=== PATIENT | male | born 1945 | race Caucasian/White ===

== ENCOUNTER 2024-09-19 00:22 | Outpatient (CLI) | payer MEDICARE, SELFPAY ==
--- NOTE | 2024-09-19 10:30 | DI.MRI_ITS ---
Exam(s) MR LUMBAR SPINE WO EXAM: MR LUMBAR SPINE WO CLINICAL HISTORY: Low back pain radiating to the bilateral legs,sciatica,m54.30. TECHNIQUE: Multiplanar multisequence MRI of the Lumbar spine was performed. COMPARISON: No prior plain film exams were available for comparison FINDINGS: Five lumbar vertebrae are presumed. Conus medullaris is at normal level. There is no evidence of conus mass nor subjacent clumping of in trathecal nerve roots to suggest arachnoiditis. The distal thecal sac appears unremarkable.There is no evidence of Tarlov intrasacral cysts nor other significant findings within the sacral canal Bones:There are no fractures nor ominous osseous lesions in the lumbar vertebral bodies and visualize d sacrum. There is a benign intraosseous hemangioma the left side of L4 vertebral body. Another is seen posteriorly in the T12 vertebral body. With respect to the individual disc space levels... T12-L1: Unremarkable L1-2: This level exhibits advanced disc space narrowing and anterior osteophytes. Posteriorly there is symmetrical annular bulging without a dominant disc herniation. Central canal dimensions are lowe r normal. There is no significant foraminal stenosis at this level. L2-3: This level exhibits moderate disc height loss. Lateral right-sided osteophytes noted. Posteri maria g there is relatively symmetrical annular bulging. Mild-moderate central canal stenosis. The frederick ular bulging does not extend appreciably into the exiting neural foramina and of the there is no sign ificant foraminal stenosis on either side at this level. There is mild-moderate facet arthropathy. L3-4: There is advanced disc space narrowing at this level which is slightly more so left than right sided and there are Modic type 1 sub endplate marrow edema changes on the left side at this level. T here is broad relatively symmetrical annular bulging at this level. There is severe central spinal c anal stenosis at this level due to the broad annular bulging, short AP dimensions of the pedicles, bi lateral ligamentum flavum hypertrophy and mild degenerative changes in the facet joints. There is mil d bilateral foraminal stenosis. L4-5: At this level there is moderate disc space narrowing. Schmorl's node invagination noted in the right of center inferior endplate of L4 with surrounding edema in the L4 vertebral body but no heigh t loss of the L4 vertebral body. Posteriorly there is also severe central spinal canal stenosis at t his level due to broad annular bulging, short AP dimensions the pedicles, bilateral ligamentum flavum hypertrophy, and facet arthropathy. There is severe foraminal stenosis on the left side. There is moderate foraminal stenosis on the right side. L5-S1: This level exhibits relatively preserved disc height. Posteriorly there appear to be bilatera l pars defects at L5 level with mild anterolisthesis of L5 upon S1. There is no disc herniation at t his level. Central canal dimensions are within normal limits. There is, however, an element of bila teral foraminal stenosis with impingement of the exiting bilateral nerve roots at this level between the overlying L5 pedicles and the subjacent mild bulging annulus. Soft tissues: There is an abnormal nodule incidentally noted in the right adrenal gland which measur es 2.6 cm AP x 2.4 cm wide. No mass seen in the left adrenal gland. IMPRESSION: 1. There is severe central spinal canal stenosis at L3-4 and L4-5 levels due to broad annular bulging , short AP dimensions the pedicles, facet arthropathy at these levels and bilateral ligamentum flavum hypertrophy. There is mild-moderate central canal stenosis at L2-3 level. 2. There is mild anterolisthesis of L5 upon S1 due to bilateral L5 pars defects. There is no central canal stenosis at this level but there is bilateral foraminal stenosis causing impingement of the bi lateral exiting nerve roots at this level. 3. There is severe left-sided foraminal stenosis at L4-5 level and moderate foraminal stenosis on the right side this level. Incidentally noted is a 2.6 x 2.4 cm right adrenal mass-nodule. If clinically indicated this can be further studied with in and out of phase chemical shift MRI imaging for added specificity. DATA REPOSITORY:
== END 2024-09-19 00:42 ==
LOC: DI 00:22
PROVIDERS: PCP Family Medicine; Visit Provider Preventive Medicine Occupational Medicine
DX: M48.062 Spinal stenosis, lumbar region with neurogenic claudication (principal)
CPT/HCPCS: 72148

== ENCOUNTER 2024-10-02 07:46 | Outpatient (CLI) | payer MEDICARE, SELFPAY ==
[2024-10-02 08:30] VITALS: BP 156/67; PULSE 64; RESP 20; TEMP 36.6; O2SAT 98
[2024-10-02 09:22] VITALS: PULSE 86; PULSE 93; RESP 17; O2SAT 97
[2024-10-02 09:23] VITALS: BP 186/80; PULSE 77; PULSE 78; RESP 19; O2SAT 96
[2024-10-02 09:30] VITALS: PULSE 75; PULSE 77; RESP 18; O2SAT 96
[2024-10-02 09:31] VITALS: BP 167/83; PULSE 66; RESP 17; O2SAT 97
[2024-10-02] MEDS: Epidural Tray 1 EACH MC (09:36)
[2024-10-02] MEDS: methylPREDNISolone ACETATE 80 MG/ML VIAL IJ (09:36)
--- NOTE | 2024-10-02 09:36 | DI.RAD_ITS ---
Exam(s) XR PAIN CLINIC LUMBAR SP 2V EXAM: XR PAIN CLINIC LUMBAR SP 2V CLINICAL HISTORY: DX: Lumbar Radiculopathy. TECHNIQUE: Fluoroscopy was provided for the referring physician for guidance with performing pain cl inic injection procedure. COMPARISON: No exams were available for comparison FINDINGS: Please see procedure note for details. Fluoro time: 22.3 seconds RADIATION DOSE DELIVERED: Ka,r=9.32 mGy
[2024-10-02] MEDS: Omnipaque 240 MG/ML 50 ML BTL IJ (09:37)
--- NOTE | 2024-10-02 09:39 | PDOC.PAIN ---
Date of service: 10/02/24 Time of Service: 09:39 Pain Managment Procedure Note Procedure Note Procedure Note: PROCEDURE NOTE LUMBAR EPIDURAL STEROID INJECTION Date of Service: October 02, 2024 Patient:Ac Duran? Provider: Wolf Fenton DO, MPH Ac Chapin has been referred to the [facility] for a lumbar epidural steroid injection. Pre-operative diagnosis: Lumbosacral Radiculopathy ICD-10 M54.16 Post-operative diagnosis: Same Pre-Procedure Pain: VAS= 7 /10 Comments: I previously evaluated him in the office. No change in symptoms since that visit. Ac was interviewed and the medical record was reviewed.? There were no medical, pharmacologic, radiographic or other structural contraindications to attempting fluoroscopically guided Lumbar epidural steroid injection.? Risks, potential side effects, indications, and potential benefits of the procedure were reviewed with Ac.? Questions and concerns were addressed.? After it was clear that Ac was fully informed about the procedure, the printed consent form was signed by the patient and myself.? Ac was placed in the prone position on the fluoroscopy table and automated blood pressure cuff and pulse oximeter applied. The skin entry point for entering/approaching the epidural space for the lumbar epidural steroid injection was marked. Following thorough chlorhexadine preparation of the skin and draping and 1% lidocaine infiltration of the skin entry point and subcutaneous tissues, an 18 gauge Touhy needle was placed and advanced under fluoroscopic guidance and with loss of resistance technique into the L5-S1 epidural space. Needle tip placement and depth were aided and confirmed by fluoroscopy. There was no paresthesia or return of blood or CSF through the needle. 1 mls of Omnipaque 240 was injected with clear epidural spread confirmed with fluoroscopy. 80 mg of Depo-Medrol was? injected. This was followed by 1 ml of preservative-free normal saline to flush the steroid out of the needle. There was no unusual discomfort expressed by Ac. The needle was withdrawn without difficulty. (49 mls of Omnipaque was wasted) Ac was observed and was without hemodynamic, neurologic, or allergic reactions.? Fluoroscopic images were digitally archived. Ac's vital signs were stable throughout the procedure and were as recorded in nursing records. Follow up plans and appointments were discussed with Ac. Post procedure instruction was given as documented in nursing records and having met discharge criteria Ac was discharged from the [facility]. COMMENTS: No apparent complications. Post-procedure pain: VAS= 0/10. Ac to contact [facility] as needed. If at least 50% improvement in pain and/or function for at least 3 months is achieved, this procedure can be repeated. I personally performed this entire procedure. WOLF FENTON DO, MPH ABPMR-subspecialty board certification in Pain Medicine [facility] Coding Conscious Sedation used for procedure: No CPT Codes: Inj Spine L/S w/Imaging - 75320 ([id number] ~G) Additional Codes: Date of Service (81929) Date of service: 10/02/24
== END 2024-10-02 07:47 | disposition home or self-care (01) ==
LOC: PC 07:47
PROVIDERS: PCP Family Medicine; Visit Provider Preventive Medicine Occupational Medicine
DX: M54.16 Radiculopathy, lumbar region (principal); M54.50 Low back pain, unspecified
CPT/HCPCS: 62323; 72100; J1010; Q9967

== ENCOUNTER 2025-02-11 09:56 | Outpatient (CLI) | payer MEDICARE, SELFPAY ==
--- NOTE | 2025-02-11 06:00 | DI.RAD_ITS ---
Exam(s) XR PAIN CLINIC SACRIOILIAC 2V EXAM: XR PAIN CLINIC SACRIOILIAC 2V CLINICAL HISTORY: Dx: Sacroiliac Joint Dysfunction TECHNIQUE: 2D and realtime digital imaging was performed. CONTRAST MATERIAL: Refer to procedure report. COMPARISON: No exams were available for comparison FINDINGS: Fluoroscopy was provided for Dr. Shelton during the performance of a left sacroiliac joint injection. Please refer to the procedure report for complete details. Ka,r=5.88 mGy IMPRESSION: RADIATION DOSE DELIVERED: 0.0 0.0 0
[2025-02-11 10:15] VITALS: PULSE 61; RESP 20; TEMP 37; O2SAT 98
[2025-02-11 10:42] VITALS: PULSE 79; O2SAT 97
[2025-02-11 10:43] VITALS: BP 222/89; PULSE 78; PULSE 79; RESP 16; O2SAT 97
[2025-02-11 10:46] VITALS: BP 222/100; PULSE 83; PULSE 86; RESP 16; O2SAT 97
[2025-02-11 10:50] VITALS: PULSE 81; PULSE 82; RESP 16; O2SAT 97
[2025-02-11 10:54] VITALS: BP 188/71; PULSE 65
[2025-02-11] MEDS: methylPREDNISolone ACETATE 80 MG/ML VIAL IJ (10:57)
[2025-02-11] MEDS: Omnipaque 240 MG/ML 50 ML BTL IJ (10:57)
[2025-02-11] MEDS: Nerve Block Tray 1 EACH MC (10:58)
--- NOTE | 2025-02-11 11:09 | PDOC.PAIN_ITS ---
Date of service: 02/11/25 Time of Service: 11:09 Pain Managment Procedure Note Procedure Note Procedure Note: PROCEDURE NOTE LEFT INTRA-ARTICULAR SACROILIAC JOINT INJECTION Date of Service: February 11, 2025 Patient: Ac Chapin Provider: Wolf Shelton DO, MPH COMMENTS: I previously evaluated the patient in the office and their symptoms in relation to the sacroiliac joint pain have remained the same. Pre-operative diagnosis: Sacroiliac joint dysfunction ICD-10 M53.3 Post-operative diagnosis: Same Pre-procedure pain: VAS= 5/10 Ac Chapin has been referred to our [facility] for a Left intra-articular Sacroiliac joint injection. Ac was interviewed and the medical record reviewed. There were no medical, pharmacologic, radiographic or other structural contraindications to attempting a fluoroscopically-guided, contrast-enhanced, intra-articular Sacroiliac joint injection. The risks, benefits, and potential side effects of this procedure were reviewed with the patient. Questions and concerns were addressed. After it was clear that Ac was fully informed about the procedure, the printed consent form was signed by the patient and myself. Ac was placed in the prone position on the fluoroscopy table and an automated blood pressure cuff, 3 lead EKG, and pulse oximeter were applied. The skin entry point for approaching the Left sacroiliac joint was identified under the most advantageous fluoroscopic view and marked. Following thorough Chlorhexadine preparation of the skin and draping with sterile surgical drapes, 2 mls of 1% lidocaine was infiltrated into the skin at the entry point and the surrounding subcutaneous tissues. Next, a 3.5 22G spinal needle was placed under fluor oscopic guidance into the Left sacroiliac joint. Intra-articular placement was confirmed by a clear arthrogram resulting from the injection of 0.25ml of Omnipaque-240. Next, 1 ml of Depo- Medrol 80 mg/ml was injected intra- articularly with an initial reproduction of a significant component of the usual pain. This was followed with 1 ml of 1% Lidocaine. The needle was then removed without difficulty. (49 ml of Omnipaque-240 was wasted). Ac's vital signs were stable throughout the procedure and were as recorded in nursing records. Follow up plans and appointments were discussed with Ac. Post procedure instructions were given as documented in nursing records. Having met discharge criteria, Ac was discharged from the [facility]. COMMENTS: Post-procedure pain: VAS= 0/10. If the patient receives at least 50% improvement in pain and/or function for at least 3 months, this procedure can be repeated if needed. I personally performed this entire procedure. WOLF SHELTON DO, MPH ABPMR-subspecialty board certification in Pain Medicine [facility] Coding Conscious Sedation used for procedure: No CPT Codes: SI Joint Inj; incl Fluoro - 01347 ([id number] ~G) Additional Codes: Date of Service (16669) Date of service: 02/11/25 Diagnoses: Sacroiliac joint dysfunction
== END 2025-02-11 09:57 | disposition home or self-care (01) ==
LOC: PC 09:56
PROVIDERS: PCP Family Medicine; Visit Provider Preventive Medicine Occupational Medicine
DX: M54.50 Low back pain, unspecified (principal); M53.3 Sacrococcygeal disorders, not elsewhere classified
CPT/HCPCS: 27096; 72200; J1010; Q9967